=== PATIENT | female | born 1975 | race Caucasian/White ===

== ENCOUNTER 2016-09-07 09:09 | Emergency (ER) | payer OTHER ==
--- NOTE | 2016-09-07 09:56 | EDPHY ---
H & P Time Seen by Provider: 09/07/16 09:38 HPI/ROS: Chief complaint. Knee pain HPI. 41-year-old female presents emergency department right knee pain. She has had multiple injuries including a running injury 2 and half months ago when she was running with her dog. She has injured her knee while dancing. Last night she was stepping over a gate and twisted it. She felt that her" knee was not lying upright". She has pain both to the inside and outside of her knee. It is not swollen. It feels unstable. No other injuries. She normally has been wearing a brace but was not wearing her brace last night ROS Constitutional. no fever/chills, no weakness Eyes. no problems with vision ENT. no sore throat, no nasal drainage Cardiovascular. no chest pain Respiratory. no shortness of breath, no cough Abdominal. no abdominal pain, no nausea/vomiting, no diarrhea . no problems urinating MS. Right knee pain Skin. no rash Lymph. no swollen glands Neuro. no headache, no dizziness, no difficulty walking or with speech Past Medical/Surgical History: Past medical history significant for hypothyroid, bipolar illness Social History: , nonsmoker, no alcohol Smoking Status: Former smoker Physical Exam: General Appearance: Alert pleasant well-developed female mild distress vital signs stable Eyes: Pupils equal and round no pallor or injection. ENT, Mouth: Mucous membranes are moist. Respiratory: There are no retractions, lungs are clear to auscultation. Cardiovascular: Regular rate and rhythm. Gastrointestinal: Abdomen is soft and nontender, no masses, bowel sounds normal. Neurological: Awake and alert, sensory and motor exams grossly normal. Skin: Warm and dry, no rashes. Musculoskeletal: Neck is supple nontender. Extremities right knee slightly swollen. There is tenderness to palpation medial and lateral joint line. No significant tenderness over the patella which is now has normal alignment. No significant instability to stress. Distal motor vascular sensitivity intact Psychiatric: Patient is oriented X 3, there is no agitation. Constitutional: Initial Vital Signs Temperature (C) 36.7 C 09/07/16 09:11 Heart Rate 78 09/07/16 09:11 Respiratory Rate 16 09/07/16 09:11 Blood Pressure 118/86 H 09/07/16 09:11 O2 Sat (%) 98 09/07/16 09:11 O2 Delivery Mode Room Air Allergies/Adverse Reactions: latex Allergy (Verified 09/07/16 09:16) bacitracin [From Neosporin] Adverse Reaction (Mild, Verified 09/07/16 09:10) Rash bacitracin zinc [From Neosporin] Adverse Reaction (Mild, Verified 09/07/16 09:10 ) Rash gramicidin D [From Neosporin] Adverse Reaction (Mild, Verified 09/07/16 09:10) Rash neomycin sulfate [From Neosporin] Adverse Reaction (Mild, Verified 09/07/16 09: 10) Rash polymyxin B [From Neosporin] Adverse Reaction (Mild, Verified 09/07/16 09:10) Rash polymyxin B sulfate [From Neosporin] Adverse Reaction (Mild, Verified 09/07/16 09:10) Rash Home Medications: Medication Instructions Recorded Lamictal 01/05/11 Levothyroxine 01/05/11 Bcp 11/11/12 Hydrocodone/APAP 5/325 [[place] 1 each PO Q4-6PRN PRN #8 tab 09/07/16 5/325 (*)] Pramipexole ER 09/07/16 Ruxelti 09/07/16 VYVANSE 09/07/16 Medical Decision Making - Diagnostics Imaging Results: Imaging Impressions Knee X-Ray 09/07/16 10:07 Impression: 1. There is no acute osseous abnormality. 2. Suspect tiny suprapatellar joint effusion. 3. Mild degenerative features. If there is further clinical concern regarding the patient's knee pain, consider MR imaging. X-ray right knee reviewed by me shows slight suprapatellar joint effusion but no fracture dislocation ED Course/Re-evaluation: Re-evaluation 1130 am--patient is stable. She and I discussed imaging study results, treatment plan, criteria for return importance of follow-up. She has seen Dr. Diallo in the past for knee pain and she is encouraged to follow up with him. Differential Diagnosis: I considered fracture, dislocation, sprain, ligamental injury Departure - Departure Disposition: Home, Routine, Self-Care Clinical Impression: Knee sprain Qualifiers: Encounter type: initial encounter Involved ligament of knee: unspecified ligament Laterality: right Qualified Code(s): S83.91XA - Sprain of unspecified site of right knee, initial encounter Condition: Good Instructions: Knee Sprain (ED) Additional Instructions: Ice and elevation next 48 hours. Ibuprofen 600 mg every 6 hours for discomfort. Hydrocodone in addition for the next 48 hours for discomfort. Wear your splint next 7-10 days. Make follow-up appointment with Dr. Marshall Referrals: Skylar Leslie MD [Primary Care Provider] - As per Instructions Prescriptions: Hydrocodone/APAP 5/325 [[place] 5/325 (*)] 1 each PO Q4-6PRN PRN #8 tab PRN Reason: Pain, Moderate
[2016-09-07 11:55] VITALS: BP 115/78; PULSE 75; RESP 15; TEMP 98.8; O2SAT 97
== END 2016-09-07 11:55 | disposition home or self-care (01) ==
DX: S83.91XA Sprain of unspecified site of right knee, initial encounter (principal); Z87.891 Personal history of nicotine dependence; Z91.040 Latex allergy status; X58.XXXA Exposure to other specified factors, initial encounter
CPT/HCPCS: L1830

== ENCOUNTER 2017-04-23 13:15 | Emergency (ER) | payer OTHER ==
[2017-04-23] MEDS ORDERED: IBUPROFEN 600 MG TAB PO ONE (13:22)
[2017-04-23] MEDS ORDERED: ONDANSETRON DISINTEGRATING 4 MG TAB PO ONE ×2 (13:23)
[2017-04-23 13:28] VITALS: TEMP 98; O2SAT 97
[2017-04-23] MEDS ORDERED: DIAZEPAM 5 MG TAB PO ONE (13:43)
[2017-04-23] MEDS ORDERED: ACETAMINOPHEN 500 MG TAB PO ONE (13:43)
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
[2017-04-23] MEDS ORDERED: oxyCODONE IR 5 MG TAB PO ONE (13:55)
[2017-04-23 15:28] VITALS: BP 116/77; PULSE 68; RESP 16
== END 2017-04-23 15:25 | disposition home or self-care (01) ==
LOC: CED 13:15
DX: S06.0X0A Concussion without loss of consciousness, initial encounter (principal); S16.1XXA Strain of muscle, fascia and tendon at neck level, initial encounter; Z87.891 Personal history of nicotine dependence; Z91.040 Latex allergy status; V49.40XA Driver injured in collision with unspecified motor vehicles in traffic accident, initial encounter; Y92.410 Unspecified street and highway as the place of occurrence of the external cause; Y99.8 Other external cause status; Y93.89 Activity, other specified
CPT/HCPCS: 72040-PO; 72050-PO

== ENCOUNTER 2018-01-03 09:22 | Emergency (ER) | payer OTHER ==
--- NOTE | 2018-01-03 09:45 | EDPHY ---
H & P Stated Complaint: Menstruating x 5 weeks, normal cramping, clots Time Seen by Provider: 01/03/18 09:35 HPI/ROS: CHIEF COMPLAINT: Vaginal bleeding x1 month, abdominal cramping HISTORY OF PRESENT ILLNESS: 42-year-old female history of bipolar disorder, was started and stopped on a new bipolar medication 1 month ago and notes that ever since stopping this she has been experiencing vaginal bleeding for the past 4 months as well as intermittent suprapubic cramping, none currently. She went to recommend urgent care today and was referred to the ER for further evaluation. No history of abdominal surgeries. She does have prior history of ovarian cyst. She denies: Back pain, flank pain, headache, dizziness, syncope , near syncope, urinary abnormality PRIMARY CARE PROVIDER: [facility] REVIEW OF SYSTEMS: 10 systems reviewed and negative with the exception of the elements mentioned in the history of present illness PAST MEDICAL & SURGICAL HISTORY: Bipolar disorder SOCIAL HISTORY: Single PHYSICAL EXAM (Prior to examination, patient consented to physical exam, hands were washed and my usual and customary physical exam procedures followed) 1) GENERAL: Well-developed, well-nourished, alert and oriented. Appears to be in no acute distress. 2) HEAD: Normocephalic, atraumatic 3) HEENT: Pupils equal, round, reactive to light bilaterally. Sclera anicteric. Nasopharynx, oropharynx, clear, no lesions. Moist Mucous membranes. 4) NECK: Full range of motion, no meningeal signs. 5) LUNGS: Clear auscultation bilaterally, no wheezes, no rhonchi, no retractions. 6) HEART: Regular rate and rhythm, no murmur, no heave, no gallop. 7) ABDOMEN: No guarding, no rebound, no focal tenderness, negative McBurney's, negative Matias's, negative Rovsing's, negative peritoneal sign, unable to elicit any abdominal pain on palpation 8) MUSCULOSKELETAL: Moving all extremities, no focal areas of tenderness, no obvious trauma. No peripheral edema or discoloration. 9) BACK: No CVA tenderness, no midline vertebral tenderness, no fluctuance, no step-off, no obvious trauma, no visual or palpable abnormality. 10) SKIN: No rash, no petechiae. 11) Psychiatric: Patient is oriented X 3, there is no agitation. DIFFERENTIAL DIAGNOSIS: In no particular order including but not limited to dysfunctional uterine bleeding, ovarian cyst, ovarian torsion, - Personal History LMP (Females 10-55): Now Current Tetanus/Diphtheria Vaccine: Yes - Medical/Surgical History Hx Asthma: No Hx Chronic Respiratory Disease: No Hx Diabetes: No Hx Cardiac Disease: No Hx Renal Disease: No Hx Cirrhosis: No Hx Alcoholism: No Hx HIV/AIDS: No Hx Splenectomy or Spleen Trauma: No Other PMH: hypothyroid,bipolar - Social History Smoking Status: Former smoker Constitutional: Initial Vital Signs Temperature (C) 37.1 C 01/03/18 09:29 Heart Rate 87 01/03/18 09:29 Respiratory Rate 16 01/03/18 09:29 Blood Pressure 126/74 H 01/03/18 09:29 O2 Sat (%) 97 01/03/18 09:29 O2 Delivery Mode Room Air Allergies/Adverse Reactions: latex Allergy (Verified 01/03/18 09:29) bacitracin [From Neosporin] Adverse Reaction (Mild, Verified 01/03/18 09:29) Rash bacitracin zinc [From Neosporin] Adverse Reaction (Mild, Verified 01/03/18 09:29 ) Rash gramicidin D [From Neosporin] Adverse Reaction (Mild, Verified 01/03/18 09:29) Rash neomycin sulfate [From Neosporin] Adverse Reaction (Mild, Verified 01/03/18 09: 29) Rash polymyxin B [From Neosporin] Adverse Reaction (Mild, Verified 01/03/18 09:29) Rash polymyxin B sulfate [From Neosporin] Adverse Reaction (Mild, Verified 01/03/18 09:29) Rash Home Medications: Medication Instructions Recorded Lamictal 01/05/11 Levothyroxine 01/05/11 Bcp 11/11/12 Pramipexole ER 09/07/16 Ruxelti 09/07/16 VYVANSE 09/07/16 Methocarbamol [Robaxin 750 mg (*)] 750 - 1,500 mg PO QID PRN #30 tab 04/23/17 traMADol [Ultram 50 mg (*)] 50 - 100 mg PO Q4 PRN #18 tab 04/23/17 Tranexamic Acid [Lysteda] 1,300 mg PO TID 5 Days tablet 01/03/18 Medical Decision Making - Diagnostics Imaging Results: Imaging Impressions Pelvic/Renal Ultrasound 01/03/18 09:43 Impression: Normal. Findings were discussed with Michael Bah PA-C at 10:30, on 01/03/2018. ED Course/Re-evaluation: I saw this patient independently based on established practice protocols. Care of patient under supervision of secondary supervising physician Dr Dr. Drake with whom I discussed case. 11:20 a.m. I have re-evaluated this patient at this time. She is resting comfortably, appears well. Discussed her laboratory and diagnostic results. Doubt acute appendicitis. Doubt ectopic . Doubt ovarian torsion . We discussed indications risks benefits of TXA . Patient has no known risk factors for thromboembolic disease, is a nonsmoker. I think she is an appropriate candidate for TXA Lysteda. Recommend close follow up with her primary care provider at [facility] and with [facility] gynecology. She feels comfortable being discharged. My usual a and customary discharge precautions instructions provided. - Data Points Laboratory Results: Laboratory Results 01/03/18 09:50 01/03/18 09:50 01/03/18 01/03/18 01/03/18 10:49 09:50 09:50 WBC RBC Hgb Hct MCV MCH MCHC RDW Plt Count MPV Neut % (Auto) Lymph % (Auto) [place] % (Auto) Eos % (Auto) Baso % (Auto) Nucleat RBC Rel Count Absolute Neuts (auto) Absolute Lymphs (auto) Absolute Monos (auto) Absolute Eos (auto) Absolute Basos (auto) Absolute Nucleated RBC Immature Gran % Immature Gran # PT INR APTT Sodium 139 mEq/L mEq/L (135-145) Potassium 4.2 mEq/L mEq/L (3.3-5.0) Chloride 107 mEq/L mEq/L (97-110) Carbon Dioxide 22 mEq/l mEq/l (22-31) Anion Gap 10 mEq/L mEq/L (6-14) BUN 14 mg/dL mg/dL (7-23) Creatinine 1.0 mg/dL mg/dL (0.6-1.0) Estimated GFR > 60 Glucose 99 mg/dL mg/dL (70-100) Calcium 9.4 mg/dL mg/dL (8.5-10.4) Beta HCG, Qual NEGATIVE Urine Color PALE YELLOW Urine Appearance CLEAR Urine pH 6.0 (5.0-7.5) Ur Specific [place] 1.009 (1.002-1.030) Urine Protein NEGATIVE (NEGATIVE) Urine Ketones NEGATIVE (NEGATIVE) Urine Blood 1+ H (NEGATIVE) Urine Nitrate NEGATIVE (NEGATIVE) Urine Bilirubin NEGATIVE (NEGATIVE) Urine Urobilinogen NEGATIVE EU EU (0.2-1.0) Ur Leukocyte Esterase NEGATIVE (NEGATIVE) Urine RBC 1-3 /hpf /hpf (0-3) Urine WBC 0-1 /hpf /hpf (0-3) Ur Epithelial Cells NONE SEEN /lpf /lpf (NONE-1+) Urine Mucus TRACE /lpf /lpf (NONE-1+) Urine Glucose NEGATIVE (NEGATIVE) 01/03/18 01/03/18 09:50 09:50 WBC 6.04 10^3/uL 10^3/uL (3.80-9.50) RBC 4.55 10^6/uL 10^6/uL (4.18-5.33) Hgb 14.1 g/dL g/dL (12.6-16.3) Hct 40.8 % % (38.0-47.0) MCV 89.7 fL fL (81.5-99.8) MCH 31.0 pg pg (27.9-34.1) MCHC 34.6 g/dL g/dL (32.4-36.7) RDW 12.3 % % (11.5-15.2) Plt Count 307 10^3/uL 10^3/uL (150-400) MPV 9.6 fL fL (8.7-11.7) Neut % (Auto) 58.2 % % (39.3-74.2) Lymph % (Auto) 26.2 % % (15.0-45.0) [place] % (Auto) 9.6 % % (4.5-13.0) Eos % (Auto) 5.0 % % (0.6-7.6) Baso % (Auto) 0.8 % % (0.3-1.7) Nucleat RBC Rel Count 0.0 % % (0.0-0.2) Absolute Neuts (auto) 3.52 10^3/uL 10^3/uL (1.70-6.50) Absolute Lymphs (auto) 1.58 10^3/uL 10^3/uL (1.00-3.00) Absolute Monos (auto) 0.58 10^3/uL 10^3/uL (0.30-0.80) Absolute Eos (auto) 0.30 10^3/uL 10^3/uL (0.03-0.40) Absolute Basos (auto) 0.05 10^3/uL 10^3/uL (0.02-0.10) Absolute Nucleated RBC 0.00 10^3/uL 10^3/uL (0-0.01) Immature Gran % 0.2 % % (0.0-1.1) Immature Gran # 0.01 10^3/uL 10^3/uL (0.00-0.10) PT 12.8 SEC SEC (12.0-15.0) INR 0.94 (0.83-1.16) APTT 24.7 SEC SEC (23.0-38.0) Sodium Potassium Chloride Carbon Dioxide Anion Gap BUN Creatinine Estimated GFR Glucose Calcium Beta HCG, Qual Urine Color Urine Appearance Urine pH Ur Specific [place] Urine Protein Urine Ketones Urine Blood Urine Nitrate Urine Bilirubin Urine Urobilinogen Ur Leukocyte Esterase Urine RBC Urine WBC Ur Epithelial Cells Urine Mucus Urine Glucose Medications Given: Discontinued Medications Acetaminophen (Tylenol) 1,000 mg PO EDNOW ONE Stop: 01/03/18 09:56 Last Admin: 01/03/18 09:58 Dose: 1,000 mg Departure - Departure Disposition: Home, Routine, Self-Care Clinical Impression: Dysfunctional uterine bleeding Condition: Good Instructions: Dysfunctional Uterine Bleeding (ED) Additional Instructions: Seek immediate medical attention if you develop new or worsening symptoms, if you develop increase in vaginal bleeding, if you develop dizziness, if you develop fevers, chills, inability to tolerate oral intake or any other symptoms that concerns you. Referrals: Jossie Ricci MD [Primary Care Provider] - As per Instructions Prescriptions: Tranexamic Acid [Lysteda] 1,300 mg PO TID 5 Days tablet
[2018-01-03] MEDS ORDERED: ACETAMINOPHEN 500 MG TAB PO ONE (09:55)
[2018-01-03 10:11] LABS: PLATELET COUNT 307 10^3/uL (150-400)
[2018-01-03 10:20] LABS: INR 0.94 (0.83-1.16); PROTIME(PATIENT) 12.8 SEC (12.0-15.0)
[2018-01-03 11:40] VITALS: BP 125/75
== END 2018-01-03 11:40 | disposition home or self-care (01) ==
DX: N93.9 Abnormal uterine and vaginal bleeding, unspecified (principal); F31.9 Bipolar disorder, unspecified